=== PATIENT | female | born 1980 | race Caucasian/White ===

== ENCOUNTER 2021-03-17 12:07 | Outpatient (CLI) | payer MEDICAID, SELFPAY ==
[2021-03-17 13:02] LABS: SARS Covid-2 Antigen Negative (Negative)
[2021-03-18 09:58] LABS: Quest SARS-CoV-2 RNA NOT DETECTED (NOT DETECTED)
== END 2021-03-17 12:08 | disposition home or self-care (01) ==
LOC: LAB 12:16
PROVIDERS: Visit Provider Family Medicine
DX: Z20.822 Contact with and (suspected) exposure to COVID-19 (principal)
CPT/HCPCS: 87426; 87635